=== PATIENT | female | born 1945 | race Two or more races ===

== ENCOUNTER 2018-10-08 09:25 | Day surgery (SDC) | payer OTHER ==
[~2018-10-08 09:25] MED LIST: AVALIDE 150-12.1 TA1; CATAFLAM50 MG PO; CRESTOR10 MG; KLONOPIN1 MG/TAB; LANOXIN EL0.05 MG/ML; NEURONTIN250 MG/5 M; NORVASC2.5 MG; ORPH100T PO; SYNTHROID125 MCG; TRIPILIX
== END 2018-10-08 14:55 | disposition home health service, planned readmission (86) ==
LOC: AMB-ENDOS 09:25
DX: K57.30 Diverticulosis of large intestine without perforation or abscess without bleeding (principal); K64.2 Third degree hemorrhoids